=== PATIENT | male | born 1945 ===

== ENCOUNTER 2019-02-02 09:32 | Emergency (ER) | payer OTHER ==
[~2019-02-02] VITALS: Ht 162.6 cm; Wt 67.1 kg
[2019-02-02] MEDS ORDERED: METFORMIN HCL1000 MG (09:45)
== END 2019-02-02 22:23 | disposition left against medical advice (07) ==
LOC: ER 09:32 → CPU-OBS 10:03 → ER 22:23
DX: I48.91 Unspecified atrial fibrillation (principal); I16.0 Hypertensive urgency; I10 Essential (primary) hypertension; R55 Syncope and collapse; N39.498 Other specified urinary incontinence; D72.828 Other elevated white blood cell count; G31.89 Other specified degenerative diseases of nervous system; F02.80 Dementia in other diseases classified elsewhere, unspecified severity, without behavioral disturbance, psychotic disturbance, mood disturbance, and anxiety; R11.2 Nausea with vomiting, unspecified
CPT/HCPCS: 70551